=== PATIENT | male | born 1950 | race Asian ===

== ENCOUNTER 2016-06-24 07:05 | Emergency (ER) | payer OTHER ==
[2016-06-24] MEDS ORDERED: Ondansetron ODT Tab 4 MG TAB PO ONE (07:21)
[2016-06-24] MEDS ORDERED: LISINOPRIL 10 MG TABLET PO ONE (07:23)
--- NOTE | 2016-06-24 07:24 | EKG ---
[address] [address] Measurements Intervals [place] Rate: 65 P: 71 W[place]: 149 QRS: 49 QRSD: 103 T: 45 QT: 413 QTc: 425 Interpretive Statements SINUS RHYTHM No previous ECG available for comparison Electronically Signed On 06-25-16 13:41:41 MST by Godfrey Cohen MD [email or web address]
[2016-06-24 07:25] VITALS: RESP 18; TEMP 98.2
[2016-06-24 07:42] LABS: BASOPHILS # (AUTO) 0.05 10*3/UL; BASOPHILS % (AUTO) 0.8 % (0-1); EOSINOPHILS % (AUTO) 3.7 % (0-8); HEMATOCRIT 49.8 % (42.0-52.0); HEMOGLOBIN 17.2 g/dL (14.0-18.0); IMM GRAN % (AUTO) 0.5 % (0-5); IMM GRAN# (AUTO) 0.03 10*3/UL; LYMPHOCYTES # (AUTO) 0.98 10*3/uL; LYMPHOCYTES % (AUTO) 15.7 % (10-50); MEAN CORPUSCULAR HEMOGLOBIN 29.6 PG (27-31); MEAN CORPUSCULAR HGB CONC 34.5 g/dL (33-37); MEAN PLATELET VOLUME 9.2 FL (7.4-12.2); MONOCYTES # (AUTO) 0.67 10*3/UL (0.3-0.8); MONOCYTES % (AUTO) 10.7 % (5-15); NEUTROPHILS # (AUTO) 4.29 10*3/UL; NEUTROPHILS % (AUTO) 68.6 % (50-80); PLATELET MORPHOLOGY COMMENT NORMAL MORPHOLOGY (NORM); RDW COEFFICIENT OF VARIATION 13.3 % (11.5-14.5); RED BLOOD COUNT 5.81 10^6/uL (4.70-6.10); WHITE BLOOD COUNT 6.25 10^3/uL (4.8-10.8)
[2016-06-24 07:51] LABS: ASPARTATE AMINO TRANSFERASE 25 IU/L (21-57); BILIRUBIN,TOTAL 1.1 mg/dL (0.3-1.2); BLOOD UREA NITROGEN 23 mg/dL (7-22); CALCIUM 9.2 mg/dL (8.7-10.7); CHLORIDE 104 meq/L (98-112); EST GLOMERULAR FILTRATION > 60 (>60 ml/min/1.73m(2)); GLUCOSE 117 mg/dL (78-110); SODIUM 141 meq/L (135-145)
--- NOTE | 2016-06-24 08:46 | PDOC ---
General Adult HPI - General Chief Complaint: General Medical Stated Complaint: feeling "shaky" Date Seen by Provider: 06/24/16 Time Seen by Provider: 07:05 Source: POSITIVE: Patient Exam Limitations: POSITIVE: No limitations Nurse's Notes Reviewed & Considered: Yes - History of Present Illness Initial Comment: The patient is a 65-year-old male. He presents to the emergency room stating that he is filled "weak"since around 6 PM last night. He's also had some nausea. He states he has a history of high blood pressure and that his blood pressure is been higher than normal. He denies any chest or abdominal pain. No fevers or chills. No GI or symptoms. No neurologic symptoms. Patient had a myocardial infarction with coronary artery stenting times to 4 years ago. Present medications are metoprolol 50 mg twice daily, lisinopril 10 mg daily and Zocor daily. No syncope or near-syncope. Have you received a tetanus shot in the past 10 years?: Yes Body Location Affected: REPORTS: Other (As above) Timing: REPORTS: Constant Duration: <24 hours (13-14 hours) Severity: Moderate Quality: REPORTS: Other (Patient denies pain anywhere) Context: DENIES: None, Sitting, Standing, Activity, Emotional stress, Coughing, Recent Trauma, Recent Surgery, Sleep, Rest, Lifting, Turning, Bending, Fall, Near Fall, Other Modifying Factors: improves with: Nothing Similar Symptoms Previously: No Recent Care Received: REPORTS: Denies Any Prior Injuries Related to Current Complaint?: No - Patient Home Medications Home Medications: Home Medications Aspirin 325 mg PO DAILY 02/03/11 Clopidogrel Bisulfate [Plavix] 75 mg ORAL QD tab 02/14/11 Lisinopril 10 mg ORAL DAILY tab 02/14/11 Nitroglycerin 0.4 mg SL X1 onset CP tab 02/14/11 Metoprolol Tartrate 100 mg ORAL QD tab 09/19/11 Sildenafil Citrate [Viagra] 100 mg PO PRN 90 Days 09/19/11 Simvastatin [Zocor] 10 mg ORAL QD tab 09/19/11 Lorazepam [Ativan] 0.5 - 1 tab PO QHS PRN #30 06/23/16 - Patient Allergies Allergies/Adverse Reactions: Allergies Allergy/AdvReac Type Severity Reaction Status Date / Time peanut Allergy Mild RASH Verified 06/24/16 07:12 Past Medical History - heen HEENT History: Other (please comment) Additional HEENT History: 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 WPW SYNDROME. Respiratory History: Asthma Gastrointestinal History: GERD Genitourinary History: Denies History Endocrine History: Denies History Musculoskeletal History: Arthritis Prosthesis or Implant: No Neurological History: Denies History Blood Disorders: Denies History Psychiatric History: Denies History History of Sexually Transmitted Diseases: No Male Reproductive History: Denies History Cancer History: Denies History In Past Year Been Physically Harmed or Verbally Threatened: No History of MDRO: No History of Other Communicable Diseases: No Tobacco Use: Never Smoker Alcohol Use: Rarely Substance Use Type: Marijuana Previous Surgical History: No Type / Date of Surgery: TONSILLECTOMY/ CORONARY STENT 02/2011 AND AGAIN IN 2012 Anesthesia Reactions: No Malignant Hyperthermia: No Family History of Malignant Hyperthermia: No Significant Family History: Hypertension Past Medical History Reviewed: Reviewed - No Changes ROS - Limitations ROS Limitations: No Limitations Constitution: REPORTS: Weakness, Other (Fatigued) Cardiovascular: REPORTS: Denies Cardiac Symptoms Respiratory: REPORTS: Denies Resp Symptoms Neurological: REPORTS: Denies Neuro Symptoms Gastrointestinal: REPORTS: Nausea Endocrine: REPORTS: Fatigue Musculoskeletal: REPORTS: Denies MS Symptoms Genitourinary: REPORTS: Denies Symptoms Eyes: REPORTS: Denies Symptoms ENT: REPORTS: Denies Symptoms Skin: REPORTS: Denies Skin Symptoms Lympathic: REPORTS: Denies Lympathic Symptoms Immunologic: POSITIVE: Denies Symptoms Psychiatric: POSITIVE: Denies Psych Symptoms General Adult Exam - General Appearance General Appearance: POSITIVE: Alert, Cooperative, No Acute Distress, No Evidence of Trauma - HEENT HEENT: POSITIVE: Head Inspection Nml, Eyes Inspection Nml, Ears Inspection Nml, Nose Inspection Nml, Oral/Dental Inspect. Nml, Pharynx Inspect. Nml, PERRL, EOMI - Pupils Pupil Size: 4 mm: Bilateral (PERRLA) - Neck Neck: POSITIVE: Normal Inspection, Thyroid Normal - Respiratory Respiratory: POSITIVE: No Respiratory Distress, Breath Sounds Normal, Chest Non- Tender - Cardiovascular Cardiovascular: POSITIVE: Regular Rate & Rhythm, No Murmur, No Gallop, PMI Normal Peripheral Pulses: Radial (R): 2+, Radial (L): 2+ - Abdomen Abdomen: Soft: (All Quadrants), Normal Bowel Sounds: (All Quadrants), Denies Tenderness: (All Quadrants), No Splenomegaly: (All Quadrants), No Hepatomegaly: (All Quadrants), No Guarding: (All Quadrants), No Rebound: (All Quadrants), No Palpable Pulse: (All Quadrants), No Palpabale Mass: (All Quadrants), No Distention: (All Quadrants), No Rigidity: (All Quadrants) - Back Back: POSITIVE: Normal Inspection - Skin Skin: POSITIVE: Normal Color, Warm, Dry, No Rash - Extremities Extremity: Non-Tender: (All Extremities), Normal ROM: (All Extremities), Normal Inspection: (All Extremities) - Neurological / Psychological Neurological: POSITIVE: Oriented X3, insurance representative Normal As Tested, Motor Normal, Sensation Normal, 5, 6 General Adult Progress - Results Reviewed by me Lab Results Reviewed: Yes (all normal) Lab Results:: Laboratory Results 06/24/16 Range/Units 07:35 WBC 6.25 (4.8-10.8) 10^3/uL RBC 5.81 (4.70-6.10) 10^6/uL Hgb 17.2 (14.0-18.0) g/dL Hct 49.8 (42.0-52.0) % MCV 85.7 (80-90) FL MCH 29.6 (27-31) PG MCHC 34.5 (33-37) g/dL RDW Std Deviation 40.9 (39-50) fL RDW Coeff of [place] 13.3 (11.5-14.5) % Plt Count 216 (140-350) 10*3/uL MPV 9.2 (7.4-12.2) FL Immature Gran % (Auto) 0.5 (0-5) % Neut % (Auto) 68.6 (50-80) % Lymph % (Auto) 15.7 (10-50) % [place] % (Auto) 10.7 (5-15) % Eos % (Auto) 3.7 (0-8) % Baso % (Auto) 0.8 (0-1) % Immature Gran # (Auto) 0.03 10*3/UL Neut # (Auto) 4.29 10*3/UL Lymph # (Auto) 0.98 10*3/uL [place] # (Auto) 0.67 (0.3-0.8) 10*3/UL Eos # (Auto) 0.23 10*3/UL Baso # (Auto) 0.05 10*3/UL WBC Morphology Comment Normal morphology (NORM) Plt Morphology Comment Normal morphology (NORM) RBC Morph Comment Normal morphology (NORM) Sodium 141 (135-145) meq/L Potassium 4.0 (3.8-5.2) meq/L Chloride 104 (98-112) meq/L Carbon Dioxide 24 (23-33) meq/L Anion Gap 13 (5-20) BUN 23 H (7-22) mg/dL Creatinine 1.0 (0.70-1.50) mg/dL Estimated GFR > 60 (>60 ml/min/1.73m(2)) BUN/Creatinine Ratio 23.00 H (6-20) Glucose 117 H (78-110) mg/dL Calculated Osmolality 296.0 H (267-292) mOsm/kg Calcium 9.2 (8.7-10.7) mg/dL Total Bilirubin 1.1 (0.3-1.2) mg/dL AST 25 (21-57) IU/L ALT 45 (21-72) IU/L Alkaline Phosphatase 101 (38-126) IU/L Total Creatine Kinase 109 (55-170) IU/L Troponin I < 0.012 (< 0.040) ng/mL Total Protein 7.0 (6.1-8.0) g/dL Albumin 4.0 (3.5-4.8) g/dL Globulin 3.0 (2.50-4.10) g/dL Albumin/Globulin Ratio 1.30 (1.3-2.0) mg/g TSH 1.28 (0.2700-4.2000) uIU/mL EKG Interpreted/Reviewed By Me:: Yes (normal) EKG Interpretation:: POSITIVE: Normal Sinus Rhythm, Normal Rate, Normal Intervals, Normal [place], Normal QRS, Normal ST/T - Patient's Progress Pain Medication Addressed: POSITIVE: Not Applicable School/Work Release Addressed: POSITIVE: Not Applicable Re-Examine Time: 08:15 Re-Examine Comment: Patient feels much better. Blood pressure at 0810 is 128/85 Status: POSITIVE: Improved, Re-Examined Antibiotics Given: No - Consult Counseled: POSITIVE: Patient, RE: Lab Results, RE: DX, RE: Need for F/U Patient Care Time - Estimated PCT Patient Care Time (In Minutes): 34 Vital Signs - Recent Vital Signs Vital Signs: Vital Signs (Last 8 hours) Temp Pulse Resp BP Pulse Ox 06/24/16 07:21 64 18 142/96 94 06/24/16 07:05 98.2 F 66 18 159/102 92 - VS Reviewed Vital Signs Reviewed: Yes Discharge Clinical Impression: Fatigue, High blood pressure Discharge Disposition: Discharged to Home Condition: Stable Patient Instructions Given at Discharge: Chronic Hypertension (ED), Weakness ( ED) Additional Instructions: Your blood pressure was somewhat elevated at 159/102 upon your initial presentation. On discharge her blood pressure is normal at 128/85. I would recommend that you take your blood pressure every 12 hours for 7-10 days, and then follow-up with your primary care provider, who will make a decision as to whether or not he need to change your blood pressure medications. Your electrocardiogram, and blood tests were all normal. I believe you're going to be fine. Follow-up with your primary care provider. Return here anytime if condition worsens in any way. Follow Up With: TAWNY BRADLEY [Primary Care Provider] - (Instructions as above. Follow-up with your primary care provider. Return here anytime if condition worsens in any way.)
== END 2016-06-24 08:41 | disposition home or self-care (01) ==
LOC: ER 07:05
DX: I10 Essential (primary) hypertension (principal); R53.83 Other fatigue; R42 Dizziness and giddiness
CPT/HCPCS: 36415; 80053; 82550; 84443; 84484; 85025; 93005; 93010; 99283